=== PATIENT | male | born 1980 | race African-American/Black ===

== ENCOUNTER 2020-07-12 02:44 | Inpatient (IN) | payer OTHER ==
[~2020-07-12] VITALS: Ht 177.8 cm; Wt 99.8 kg
--- NOTE | ~2020-07-12 | EMS ---
[address] [address] EMS Patient Care Report Name: ANAIS WILLINGHAM Room #: 170-6 ADM IN M.R.#: [id number] Admission: 07/12/20 Attend Phys: Srinath Trujillo MD Discharge: Date of : 76 Report #: [id number] THIS REPORT FOR: //name// Report Transmitted: 07/12/2020 03:54 EMS Care Summary [place], [place]/[facility] Incident [id number] @ 07/12/2020 02:12 Incident Location [address] [place] [id number] Patient ANAIS WILLINGHAM Male, 39 Years 1980 Patient Address [address] [place], [place] [id number] Patient History Amputee,Peripheral Vascular Disease, Patient Allergies Fish allergy,Seafood allergy, Patient Medications Amitriptyline, Xarelto, Gabapentin, Chief Complaint Infection of LBKA Disposition Transported No Lights/Orr Dispatch Reason Sick Person Transported To [facility] [place] Narrative Arrived on scene to find our patient seated in a chair in the living room of his apartment. Patient stated he believed his left below knee amputation had [address] [address] EMS Patient Care Report Name: ANAIS WILLINGHAM Room #: 170-6 ADM IN Laura#: [id number] Admission: 07/12/20 Attend Phys: Srinath Trujillo MD Discharge: Date of : 76 Report #: [id number] become infected. Patient the amputation had been performed in september 2018, and that he started to have a wound open up on the lower extremity approximately 2 months prior to its current stated. Patient called EMS due to not being able to sleep due to pain caused from the wound. Patient stated he had been trying to keep the area clean. Patient rated his pain as a 10/10, area around the lower extremity was warm to the touch. Patient had green puss like substance oozing from wound, small area of the wound were black and dried. Patient was moved from his chair to the cot. Vital signs obtained. and patient transported and transferred to receiving facility without change in patient condition. Initial Vitals @02:32P: 107,R: 16,BP: 145/85,Pain: 10/10,GCS: 15,CO: 0,SpO2: 97,Revised Trauma: 12, @02:33P: 99,R: 16,BP: 137/80,Pain: 10/10,GCS: 15,SpO2: 98,Revised Trauma: 12, Assessments @02:45MENTAL:Person Oriented,Time Oriented,Place Oriented,Event Oriented,SKIN:HEENT:Head/Face: No Abnormalities,Neck/Airway: No Abnormalities,LUNG SOUNDS:General: No Abnormalities,ABDOMEN:General: No Abnormalities,PELVIS//GI:No Abnormalities,EXTREMITIES:Left Leg: Other,Left Arm: No Abnormalities,Right Arm: No Abnormalities,Right Leg: No Abnormalities,PULSE:NEURO:No Abnormalities, Impression Skin infection Procedures @02:45ALS AssessmentResponse: UnchangedSucceeded Timeline 02:11,Call Received 02:11,Dispatch Notified 02:12,Dispatched 02:14,En Route 02:21,On Scene 02:24,At Patient 02:31,Depart Scene 02:32,BP: 145/85 M,PULSE: 107,RR: 16 R,SPO2: 97 Ox,ETCO2: ,BG: ,PAIN: 10,GCS: 15, 02:33,BP: 137/80 M,PULSE: 99,RR: 16 R,SPO2: 98 Ox,ETCO2: ,BG: ,PAIN: 10,GCS: 15, 02:37,At Destination 02:45,ALS Assessment,Response: UnchangedSucceeded, 02:49,Call Closed [facility] [address] [place] [address] EMS Patient Care Report Name: MAULIKANAIS Room #: 170-6 ADM IN M.R.#: [id number] Admission: 07/12/20 Attend Phys: Srinath Trujillo MD Discharge: Date of : 76 Report #: [id number] Disclaimer [email or web address] Copyright 2020 [employer] This EMS Care Summary contains data elements from the applicable legal record (which may be displayed differently). It is designed to provide pertinent information for the following purposes: continuity of care, clinical quality, and state data reporting. The complete legal record is available to ED staff and administrators of the receiving hospital in [employer]'s Patient Tracker. All data is provided "as is."
[2020-07-12 02:46] VITALS: BP 142/64
[2020-07-12] MEDS ORDERED: AMITRIPTYLINE H50 M2 PO (02:54)
[2020-07-12] MEDS ORDERED: XARELTO10 M1 PO (02:54)
[2020-07-12] MEDS ORDERED: NEURONTIN 400M400 M2 PO (02:55)
[2020-07-12] MEDS ORDERED: PLAVIX 75 MG TA75 MG PO (02:56)
[2020-07-12 03:16] LABS: ABSOLUTE NEUTROPHILS 7.2 thou/uL (1.4-8.2); BASOPHILS 0.7 % (0.0-2.0); EOSINOPHILS 2.7 % (0.0-3.0); HEMATOCRIT 41.2 % (42.0-52.0); HEMOGLOBIN 13.2 gm/dL (14.0-18.0); LYMPHOCYTES 22.8 % (24.0-44.0); MCH 23.6 pg (26.0-34.0); MCHC 32.1 g/dL (28.0-37.0); MCV 73.6 fL (80.0-100.0); MONOCYTES 7.2 % (1.0-8.0); PLATELET COUNT 551 thou/uL (150-400); POLYS 66.6 % (36.0-66.0); RDW 15.1 % (10.5-14.5); WBC 10.7 thou/uL (4.0-11.0)
[2020-07-12 03:27] LABS: CALCIUM 9.6 mg/dL (8.5-10.1); CREATININE 1.2 mg/dL (0.7-1.3); POTASSIUM 3.4 mmol/L (3.5-5.1)
[2020-07-12 03:33] LABS: ALBUMIN 3.6 g/dL (3.4-5.0); DIRECT BILIRUBIN 0.1 mg/dL (<0.1-0.2); TOTAL BILIRUBIN 0.3 mg/dL (0.2-1.0)
[2020-07-12 09:35] VITALS: BP 122/75
--- NOTE | 2020-07-12 11:06 | NUR ---
THE PT STATED "I WANT TO LEAVE, THIS IS TAKING TOO LONG." WHEN ASKED WHAT WE COULD HELP HIM WITH, HE STATED HE NEEDS PAIN MEDS. THE PT HAD RECENTLY RECEIVED MORPHINE, BUT THE PT STATED "ONLY DILAUDID WORKS." PT BEGAN REMOVING HIS IV, AND SAYING HE WAS LEAVING. THIS RN REMOVED THE IV AT THIS TIME AND HAD THE PT SIGN AN AMA FORM.
== END 2020-07-12 11:33 | disposition left against medical advice (07) | DRG 566 ==
LOC: ER 02:44 → EROBS 02:46 → ER 04:04 → EROBS 04:08 → ER 11:13 → EROBS 11:33
PROVIDERS: Emergency Medicine; ADMIT Internal Medicine; ATTEND Internal Medicine
DX: T87.44 Infection of amputation stump, left lower extremity (principal); I73.9 Peripheral vascular disease, unspecified; F17.210 Nicotine dependence, cigarettes, uncomplicated; Y83.8 Other surgical procedures as the cause of abnormal reaction of the patient, or of later complication, without mention of misadventure at the time of the procedure; Z53.21 Procedure and treatment not carried out due to patient leaving prior to being seen by health care provider; Z79.01 Long term (current) use of anticoagulants; Z79.899 Other long term (current) drug therapy; Z91.013 Allergy to seafood; Z89.512 Acquired absence of left leg below knee; Y92.89 Other specified places as the place of occurrence of the external cause